=== PATIENT | male | born 2000 | race Caucasian/White ===

== ENCOUNTER 2021-06-02 02:42 | Emergency (ER) | payer MEDICAID ==
[~2021-06-02] VITALS: Ht 175.3 cm; Wt 104.0 kg
[2021-06-02] MEDS ORDERED: TETANUS, DIPHTHERIA, PERTUSSIS VAC/PF 0.5ML (>10YR OLD) IM ONE (03:30)
[2021-06-02] MEDS ORDERED: LIDOCAINE HCL/EPINEPHRINE 1%-EPI 1:100,000 20 ML VIAL INFIL ONE (03:30)
[2021-06-02] MEDS ORDERED: BACITRACIN ZINC OINT UDPKT TOP ONE (03:30)
[2021-06-02 05:19] VITALS: BP 135/83
[2021-06-02] MEDS ORDERED: CEPH500T MT (06:40)
== END 2021-06-02 07:04 | disposition home or self-care (01) ==
LOC: ER 02:42
DX: S02.85XA Fracture of orbit, unspecified, initial encounter for closed fracture (principal); H57.12 Ocular pain, left eye; V00.131A Fall from skateboard, initial encounter; Y93.89 Activity, other specified; Y92.89 Other specified places as the place of occurrence of the external cause; Y99.8 Other external cause status
CPT/HCPCS: 12014; 70450; 70486; 72125; 90471; 90715; 99285; J3490